=== PATIENT | male | born 2000 | race Two or more races ===

== ENCOUNTER 2024-02-20 21:54 | Emergency (ER) | payer OTHER ==
[~2024-02-20] VITALS: Ht 165.1 cm; Wt 62.1 kg
[2024-02-20] MEDS ORDERED: ACETAMINOPHEN 500 MG GEL..CAP PO STA (23:03)
[2024-02-20] MEDS ORDERED: GUAIFENESIN/DEXTROMETHORPHAN 100 MG/5 ML ML PO STA (23:04)
[2024-02-21 00:03] LABS: HEMATOCRIT 41.1 % (39.0-48.0); HEMOGLOBIN 14.1 g/dL (13-16.00); MEAN CELL VOLUME 85.6 fL (80.0-100.00); MEAN CORPUSCULAR HEMOGLOBIN 29.4 pg (27.00-32.0); MEAN CORPUSCULAR HGB CONC 34.3 g/dl (32.0-36.0); PLATELET COUNT 241 K/uL (150-450); RED CELL DISTRIBUTION WIDTH 13.3 % (11.5-14.5)
[2024-02-21] MEDS ORDERED: PHENAGIL TABLE1 EACH PO (03:18)
[2024-02-21] MEDS ORDERED: DOLOGESIC-DF 51 EACH PO (03:18)
[2024-02-21] MEDS ORDERED: ZYNCOF 20-400120 ML PO (03:18)
== END 2024-02-21 03:33 ==
LOC: ER 21:55
PROVIDERS: General Practice
DX: J06.9 Acute upper respiratory infection, unspecified (principal); Z20.822 Contact with and (suspected) exposure to COVID-19